=== PATIENT | female | born 1955 ===

== ENCOUNTER 2016-11-30 11:05 | Inpatient (IN) | payer SELFPAY ==
[2016-11-23 11:38] VITALS: BMI 30.5
[2016-11-30] MEDS ORDERED: Lactated Ringer's 1,000 ML IV ONE (12:12)
[2016-11-30] MEDS ORDERED: Succinylcholine 200 mg/10 ml Inj IV ONE (13:05)
[2016-11-30] MEDS ORDERED: ePHEDrine 50 mg/ml Inj ONE (13:05)
[2016-11-30] MEDS ORDERED: Rocuronium 10 mg/ml (5 ml) ONE (13:05)
[2016-11-30] MEDS ORDERED: Propofol 10 mg/ml Inj (20 ML) ONE (13:05)
[2016-11-30] MEDS ORDERED: Lidocaine 1% Inj (20ml) ONE (13:05)
[2016-11-30] MEDS ORDERED: Bupivacaine 0.5% Inj(30mL) ONE (13:06)
[2016-11-30] MEDS ORDERED: Phenylephrine 10 mg/ml Inj ONE (13:13)
[2016-11-30] MEDS ORDERED: Midazolam 2 MG/2 ML VIAL ONE (13:37)
[2016-11-30] MEDS ORDERED: Sodium Chloride 0.9% 1,000 ML IV ONE (14:20)
[2016-11-30] MEDS ORDERED: Desflurane Inhalation Anesthetic Liq (240 ml) ONE (14:43)
[2016-11-30] MEDS ORDERED: Neostigmine Methylsulfate 3mg/3ml Syringe IV ONE (14:49)
[2016-11-30] MEDS ORDERED: Lactated Ringer's 500 ML IV ONE (15:04)
[2016-11-30] MEDS ORDERED: HYDROmorphone 0.5 mg/0.5 ml ISec IVP PRN (15:05)
[2016-11-30] MEDS ORDERED: Oxycodone/Acetaminophen 5/325 mg Tab PO PRN (15:05)
[2016-11-30] MEDS ORDERED: Iohexol 240 (50 ml) PO ONE (15:10)
[2016-11-30] MEDS ORDERED: Barium Sulfate Susp 2.1% w/v, 2.0% w/w 450 mL Bottle PO ONE (15:12)
--- NOTE | 2016-11-30 15:19 | PCM.SURG1 ---
Surgeon's Initial Post Op Note - Surgeon's Notes Surgeon: Dr. Reaves Reconciliation Specialist: Tressa Valle, PGY2 Pre-Operative Diagnosis: Left Breast cancer Operative Findings: see full operative report Post-Operative Diagnosis: left breast cancer Operation Performed: left breast mastectomy with axillary lymph node dissection Specimen/Specimens Removed: left breast with long suture tag in the lateral portion and 2 short sutures in the inferior portion, left axillary soft tissue Estimated Blood Loss: EBL {In ML}: 20 Blood Products Given: N/A Drains Used: Sami Date of Surgery/Procedure: 11/30/16 Time of Surgery/Procedure: 14:00
[2016-11-30 23:05] VITALS: RESP 20
[2016-12-01] MEDS ORDERED: ceFAZolin 1 GM in Sodium Chloride 0.9% 100 ML IVPB SCH (01:00)
[2016-12-01 06:05] LABS: BASO # 0.1 K/uL (0.0-0.2); BASO % 0.8 % (0.0-2.0); EOS # 0.1 K/uL (0.0-0.7); EOS % 1.4 % (0.0-4.0); LYMPH # 2.4 K/uL (1.0-4.3); LYMPH % 24.2 % (20.0-40.0); MEAN CELL VOLUME 89.3 fl (81.0-99.0); MEAN CORPUSCULAR HEMOGLOBIN 29.1 pg (27.0-31.0); MEAN CORPUSCULAR HGB CONC 32.5 g/dL (33.0-37.0); MEAN PLATELET VOLUME 8.4 fl (7.2-11.7); MONO # 0.7 K/uL (0.0-0.8); MONO % 7.1 % (0.0-10.0); NEUT # 6.6 K/uL (1.8-7.0); NEUT % 66.5 % (50.0-75.0); WHITE BLOOD COUNT 9.9 K/uL (4.8-10.8)
[2016-12-01 06:23] LABS: ALB/GLOB RATIO 1.5 (1.0-2.1); ALKALINE PHOSPHATASE 99 U/L (38-126); ALT/SGPT 34 U/L (9-52); AST/SGOT 24 U/L (14-36); BILIRUBIN,TOTAL 0.5 mg/dl (0.2-1.3); BLOOD UREA NITROGEN 10 mg/dl (7-17); CALCIUM 9.2 mg/dL (8.4-10.2); CARBON DIOXIDE 27 mmol/L (22-30); GFR AFRICAN-AMERICAN > 60; GLUCOSE,RANDOM 128 mg/dL (65-105); POTASSIUM 4.7 MMOL/L (3.6-5.0); SODIUM 147 mmol/l (132-148); TOTAL PROTEIN 6.6 G/DL (6.3-8.2)
[2016-12-01 06:30] LABS: CHLORIDE 108 mmol/L (98-107)
[2016-12-01 06:31] LABS: PARTIAL THROMBOPLASTIN TIME 29.6 Seconds (25.6-37.1)
[2016-12-01] MEDS ORDERED: Iohexol 240 (50 ml) PO ONE (07:45)
[2016-12-01] MEDS ORDERED: Iohexol 300 100 ML IJ ONE (08:01)
[2016-12-01] MEDS ORDERED: Sodium Chloride 0.9% 50 ML IV ONE (08:01)
--- NOTE | 2016-12-01 11:24 | CT ---
PROCEDURE: CT Chest, Abdomen and Pelvis with intravenous contrast HISTORY: Breast cancer mets r/o COMPARISON: None. TECHNIQUE: IV dose administered: 95 cc Omnipaque 300 Radiation dose: Total exam DLP = 1273.17 mGy-cm. This CT exam was performed using one or more of the following dose reduction techniques: Automated exposure control, adjustment of the mA and/or kV according to patient size, and/or use of iterative reconstruction technique. FINDINGS: CT CHEST WITH CONTRAST: LUNGS: Clear. No nodule, mass or consolidation. MEDIASTINUM: Unremarkable. Normal caliber aorta and pulmonary arterial trunk. No aortic dissection. Normal size heart. LYMPH NODES: No enlarged mediastinal lymph nodes. There is a subcentimeter right peritracheal lymph node noted incidentally. PLEURA: Unremarkable. No pneumothorax. No pleural fluid. BONES: Unremarkable. OTHER FINDINGS: Status post left mastectomy. Subcutaneous emphysema over left anterior and lateral chest wall. Surgical drain in subcutaneous soft tissues. No significant axillary lymphadenopathy. CT ABDOMEN AND PELVIS: LIVER: Normal size and contour. Diminished attenuation diffusely may reflect diffuse fatty infiltration. Smooth contour. There is a 1.4 cm rounded low-attenuation mass at the periphery of the inferior right hepatic lobe, possibly a cyst but nonspecific. This measures 26 Hounsfield units in attenuation. No other hepatic mass is identified. There is no biliary ductal dilatation. GALLBLADDER AND BILE DUCTS: Unremarkable. PANCREAS: Unremarkable. No gross lesion or ductal dilatation. SPLEEN: Unremarkable. ADRENALS: Mild unilateral left adrenal hypertrophy. No discrete adrenal mass. KIDNEYS AND URETERS: Two punctate nonobstructing right upper pole renal calculi, approximately 2 mm each. No renal mass. No hydronephrosis. VASCULATURE: Unremarkable. No aortic aneurysm. BOWEL: Unremarkable. No obstruction. No gross mural thickening. APPENDIX: Appendix not visualized. Please correlate with any history of prior surgical appendectomy. PERITONEUM: Unremarkable. No free fluid. No free air. LYMPH NODES: Unremarkable. No enlarged lymph nodes. BLADDER: Unremarkable. REPRODUCTIVE: Normal uterus. Incidental 1.4 cm left ovarian cyst. Recommend correlation with transvaginal pelvic ultrasound examination. Unremarkable right ovary. BONES: No fracture. Incidentally noted partially lumbar iced S1 vertebra, normal developmental variant. OTHER FINDINGS: None. IMPRESSION: No evidence of metastasis. No thoracic or abdominal/pelvic lymphadenopathy. Incidental 1.4 cm rounded low-attenuation mass in the inferior right hepatic lobe. Please correlate with ultrasound. Incidental tiny nonobstructing right upper pole renal calculi. Additional minor findings as above. Status post left mastectomy. Postsurgical changes in left anterior chest wall. Subcutaneous emphysema noted. Surgical drain noted.
--- NOTE | 2016-12-01 11:42 | CP.PCM.PN ---
Subjective - Date & Time of Evaluation Date of Evaluation: 12/01/16 Time of Evaluation: 09:30 - Subjective Subjective: Patient seen and examined htis AM. TERELLEO. Patient states she has minimal pain, no fevers, chills, or SOB. Approximately 60cc's serosanguinous fluid output in Sami drain since surgery. Objective - Vital Signs/Intake and Output Vital Signs (last 24 hours): Temp Pulse Resp BP Pulse Ox 97.8 F 90 20 123/79 95 12/01/16 08:38 12/01/16 08:38 12/01/16 08:38 12/01/16 08:38 12/01/16 08:38 Intake and Output: 12/01/16 12/01/16 06:59 18:59 Intake Total 1100 Output Total 40 Balance 1060 - Medications Medications: Current Medications Famotidine (Pepcid) 20 mg PO BID [facility] Last Admin: 12/01/16 09:33 Dose: 20 mg Heparin Sodium (Porcine) (Heparin) 5,000 units SC Q12 GABI PRN Reason: Protocol Ondansetron HCl (Zofran Inj) 4 mg IVP Q6 PRN PRN Reason: Nausea/Vomiting Oxycodone/Acetaminophen (Percocet 5/325 Mg Tab) 1 tab PO Q4 PRN PRN Reason: Pain, moderate (4-7) Stop: 12/03/16 15:06 - Labs Labs: 12/01/16 05:55 12/01/16 05:55 PT 11.6 Seconds (9.8-13.1) 12/01/16 05:55 INR 1.1 (0.9-1.2) 12/01/16 05:55 APTT 29.6 Seconds (25.6-37.1) 12/01/16 05:55 - Constitutional Appears: Non-toxic, No Acute Distress - Head Exam Head Exam: ATRAUMATIC, NORMOCEPHALIC - Eye Exam Eye Exam: Normal appearance. absent: Conjunctival injection, Scleral icterus - ENT Exam ENT Exam: Mucous Membranes Moist, Normal Oropharynx - Respiratory Exam Respiratory Exam: NORMAL BREATHING PATTERN. absent: Accessory Muscle Use, Respiratory Distress - Cardiovascular Exam Cardiovascular Exam: RRR - GI/Abdominal Exam GI & Abdominal Exam: Soft. absent: Distended, Tenderness - Extremities Exam Extremities Exam: absent: Calf Tenderness, Pedal Edema, Tenderness - Neurological Exam Neurological Exam: Alert, Awake, Oriented x3 - Psychiatric Exam Psychiatric exam: Normal Affect, Normal Mood - Skin Skin Exam: Dry, Intact, Normal Color, Warm - Additional Findings Additional findings: Surgical dressing over left breast d/c/i. no surrounding swelling. No swelling or discoloration or weakness in the left arm Assessment and Plan - Assessment and Plan (Free Text) Assessment: 61F POD#1 s/p left breast mastectomy with axillary lymph node dissection for breast cancer Plan: - f/u CT chest, abdomen, and pelvis results - f/u bone scan results - resume HHD diet after scans - Continue PRN pain and nausea meds - Continue to monitor drain output - DVT ppx, GI ppx - Encourage ambulation and IS Further recs per Dr. Jean Paul Valle, PGY2
[2016-12-01 15:51] VITALS: BP 118/76; PULSE 88; TEMP 97.5
--- NOTE | 2016-12-01 17:08 | OP ---
PROCEDURE DATE: 11/30/2016 PREOPERATIVE DIAGNOSIS: Carcinoma of left breast. POSTOPERATIVE DIAGNOSIS: Carcinoma of left breast. PROCEDURE: Left modified radical mastectomy with axillary lymph node dissection. SURGEON: Kaylynn Reaves MD SENIOR SQL SERVER DBA: Dr. Valle. TYPE OF ANESTHESIA: General. ANESTHESIA ADMINISTERED BY: Dr. Gonzalez. DESCRIPTION OF PROCEDURE: With the patient in the supine position, the left chest, axilla, and upper arm were prepped and draped in the usual sterile manner. The patient had a palpable mass in the retro-areolar portion of the left breast and an elliptical incision was marked encompassing the nipple-areolar complex. The upper incision was made and a skin flap was raised primarily using cautery up to the upper edge of the pectoralis major. The lower incision was made and lower flap was raised down to the costal margin. The breast tissue was primarily fatty and the lower outer portion of breast tissue was dissected off the chest wall preserving the serratus musculature, and the dissection of the breast was continued dissecting the entire breast off the pectoral fascia using the cautery and to the area of the axilla. There was a narrow connection of the breast tissue to the axilla and this was divided to remove the breast. The lateral aspect of the overlying skin was marked with a long Vicryl suture and the inferior aspect was marked with two short sutures for pathologic reference. There did not appear to be any gross adherence of the tumor to either the chest wall or the overlying skin. The axilla was then identified and after visualizing the axillary vein, the fatty axillary contents were dissected downward from the pectoralis to the latissimus dorsi. There were no significantly enlarged lymph nodes identified and the axillary contents were primarily fatty. Clips were placed surrounding the axilla as the smaller lymphatic vessels were divided and the axillary contents were sent separately to pathology. The operative site was examined for hemostasis. The wound was irrigated with sterile water. A #19 Sami drain was placed via a stab incision in the lower lateral portion of the flap and positioned beneath both the chest wall and the axilla, and closure was performed with kaylah. A dry sterile dressing was applied. The patient tolerated the procedure well and transferred to recovery room in stable condition. Estimated blood loss for the procedure was 50 mL. Kaylynn Reaves MD [facility] # [id number]
[2016-12-01 17:09] VITALS: O2SAT 100
--- NOTE | 2016-12-01 17:12 | NM ---
PROCEDURE: Whole Body Bone Scan HISTORY: breast cancer r/o mets COMPARISON: December 01, 2016. CT thorax abdomen and pelvis. TECHNIQUE: Following administration of 25.7 miCu of Tc MDP multiplanar whole body images were obtained. FINDINGS: Evidence for bony metastatic disease: None. Degenerative uptake: Primarily affecting knees and ankles. Physiologic uptake: Normal physiologic activity in the kidneys. Other findings: None. IMPRESSION: No evidence of bony metastatic disease.
== END 2016-12-01 18:00 | disposition home or self-care (01) | DRG 258 ==
LOC: H.OPSURG 11:05 → H.PEDS 17:14
PROVIDERS: ADMIT Specialist; ATTEND Specialist
PROC: 07B60ZZ Excision of Left Axillary Lymphatic, Open Approach (ICD-10-PCS; 2016-11-30)
PROC: 0HTU0ZZ Resection of Left Breast, Open Approach (ICD-10-PCS; principal; 2016-11-30 13:30)
DX: C50.012 Malignant neoplasm of nipple and areola, left female breast (principal); I10 Essential (primary) hypertension; I25.2 Old myocardial infarction

== ENCOUNTER 2016-12-03 18:05 | Emergency (ER) | payer SELFPAY ==
[2016-12-03 18:06] VITALS: BMI 30.5
--- NOTE | 2016-12-03 19:21 | ED PDOC ---
HPI: Wound Care - HPI Time Seen by Provider: 12/03/16 18:43 Chief Complaint (Nursing): Breast Problem Chief Complaint (Provider): Drainage from wound of left breast History Per: Patient Exam Limitations: no limitations Onset/Duration Of Symptoms: Days (earlier today) Current Symptoms Are (Timing): Still Present Quality Of Symptoms: Draining Additional Complaint(s): Patient is a 61 year old female with a past medical history of breast cancer and an appendectomy, presenting to the ED complaining of drainage from the left breast that began earlier today, post left breast mastectomy day 3. The operation was performed in this facility, by Dr. Reaves. Patient received a ARACELI drainage tube surgically placed and was discharged home. She has not undergone any chemotherapy or radiation therapy, and denies any pain, bleeding, fever, or any other complaints. Her primary care physician is located in [place], [place]. PMD: Jean Paul CRUZ Benetta L Past Medical History Reviewed: Historical Data, Nursing Documentation, Vital Signs Vital Signs: Last Vital Signs Temp 97.9 F 12/03/16 18:30 Pulse 90 12/03/16 18:30 Resp 18 12/03/16 18:30 BP 154/87 H 12/03/16 18:30 Pulse Ox 97 12/03/16 18:30 - Medical History PMH: HTN (NO MEDICATION STOP SELF) Denies: Chronic Kidney Disease - Surgical History Surgical History: Appendectomy (15 YRS AGO) - Family History Family History: States: No Known Family Hx - Social History Current smoker - smoking cessation education provided: Yes (Heavy smoker, > 10 cigarettes daily) Alcohol: None Drugs: Denies - Home Medications Home Medications: Ambulatory Orders Medication Instructions Recorded No Known Home Med 12/01/16 - Allergies Allergies/Adverse Reactions: Allergies Allergy/AdvReac Type Severity Reaction Status Date / Time No Known Allergies Allergy Verified 12/01/16 08:14 Review of Systems ROS Statement: Except As Marked, All Systems Reviewed And Found Negative Skin: Positive for: Other (Left breast wound drainage) Physical Exam - Reviewed Nursing Documentation Reviewed: Yes Vital Signs Reviewed: Yes - Physical Exam Appears: Positive for: No Acute Distress Head Exam: Positive for: ATRAUMATIC, NORMOCEPHALIC Skin: Positive for: Normal Color, Warm, Dry Eye Exam: Positive for: Normal appearance, EOMI Neck: Positive for: Normal, Painless ROM, Supple Cardiovascular/Chest: Positive for: Regular Rate, Rhythm. Negative for: Murmur Respiratory: Positive for: Normal Breath Sounds. Negative for: Respiratory Distress Gastrointestinal/Abdominal: Positive for: Normal Exam, Soft. Negative for: Tenderness Back: Positive for: Normal Inspection. Negative for: L CVA Tenderness, R CVA Tenderness Extremity: Positive for: Normal ROM. Negative for: Pedal Edema Neurologic/Psych: Positive for: Alert, Oriented (x3) Comments: Left Breast Exam: -Performed in presence of nurse Sita. -Status-post mastectomy. Surgical wound with sutures in place show no bleeding or redness. ARACELI drain present in wound, serosanguineous fluid draining into ANDRAE tube container. - ECG O2 Sat by Pulse Oximetry: 97 (RA) Pulse Ox Interpretation: Normal Medical Decision Making Medical Decision Making: Time: 19:04 Initial Impression: Dislodged ARACELI drainage tube Initial Plan: -Will consult with Dr. Reaves [address] Reaves who recommends to leave ARACELI tube out and follow up with her on Monday. Disposition - Clinical Impression Clinical Impression: Incisional breast wound, Encounter for surgical wound dressing change - Patient ED Disposition Is Patient to be Admitted: No Doctor Will See Patient In The: Office Counseled Patient/Family Regarding: Studies Performed, Diagnosis, Need For Followup - Disposition Referrals: Kaylynn Reaves MD [Staff Provider] - Disposition: Routine/Home Disposition Time: 20:37 Condition: GOOD Additional Instructions: Follow up with Dr Reaves on Monday. Instructions: Acute Wound Care (ED) Print Language: CITIZEN OF [place]
[2016-12-03 20:46] VITALS: BP 144/79; PULSE 79; RESP 16; TEMP 98; O2SAT 99
== END 2016-12-03 20:46 | disposition home or self-care (01) ==
LOC: H.ER 18:05
DX: Z48.01 Encounter for change or removal of surgical wound dressing (principal)

== ENCOUNTER 2017-03-23 10:19 | Day surgery (SDC) | payer SELFPAY ==
[2017-03-21 08:43] VITALS: BMI 33.6
[2017-03-23] MEDS ORDERED: Iohexol 300 100 ML IJ ONE (14:58)
[2017-03-23] MEDS ORDERED: Lidocaine 1% Inj (20ml) ONE (14:58)
[2017-03-23] MEDS ORDERED: Propofol 10 mg/ml Inj (20 ML) ONE (15:37)
[2017-03-23] MEDS ORDERED: Midazolam 2 MG/2 ML VIAL ONE (15:38)
--- NOTE | 2017-03-23 16:56 | PCM.SURG1 ---
Surgeon's Initial Post Op Note - Surgeon's Notes Surgeon: Dr Reaves Border Guard: Dr Lam PGY3 Type of Anesthesia: General Endo Pre-Operative Diagnosis: breast ca Operative Findings: see report Post-Operative Diagnosis: as above Operation Performed: attempted right subclavian insertion. right IJ insertion. flouroscopic confirmation Specimen/Specimens Removed: none Estimated Blood Loss: EBL {In ML}: 5 Blood Products Given: N/A Drains Used: No Drains Post-Op Condition: Good Date of Surgery/Procedure: 03/23/17 Time of Surgery/Procedure: 16:56
--- NOTE | 2017-03-23 16:58 | CP.SDSHP ---
Same Day Surgery H & P - History Proposed Procedure: chemo-port insertion Pre-Op Diagnosis: breast ca - Previous Medical/Surgical History Pain: 0. No Pain - Allergies Allergies: Allergies No Known Allergies Allergy (Verified 03/21/17 08:43) as per pt - Physical Exam Vital Signs: Vital Signs 03/23/17 03/23/17 10:55 10:58 Temperature 98.4 F Pulse Rate 105 H 105 H Respiratory 20 Rate Blood Pressure 132/89 O2 Sat by Pulse 96 Oximetry Mental Status: Alert & Oriented x3 Neuro: WNL Heart: WNL Lungs: WNL GI: WNL - {Optional Preform as Required} Abdomen: WNL - Impression Impression: prepped for chemoport insertion Pt. Evaluated Today:Candidate for Anesthesia & Procedure: Yes - Date & Time Date: 03/23/17 Time: 16:58 Short Stay Discharge - Short Stay Discharge Admitting Diagnosis/Reason for Visit: C50.90 Disposition: HOME/ ROUTINE Referrals: Urszula Lamas APN [Primary Care Provider] -
[2017-03-23] MEDS ORDERED: HYDROmorphone 0.5 mg/0.5 ml ISec IVP PRN (17:06)
[2017-03-23] MEDS ORDERED: Lactated Ringer's 1,000 ML IV SCH (17:15)
[2017-03-23 17:17] VITALS: RESP 18
--- NOTE | 2017-03-23 17:41 | RAD ---
PROCEDURE: CHEST RADIOGRAPH, 1 VIEW HISTORY: s/p chemo-port insertion COMPARISON: 03/21/2017 FINDINGS: LUNGS: Clear. PLEURA: No pneumothorax or pleural fluid seen. CARDIOVASCULAR: No radiographic findings to suggest acute or significant cardiovascular disease. Right IJ catheter tip above the confluence of the right subclavian and right internal jugular vein. The finding is marked on the study for review. The tip overlies the clavicle. OSSEOUS STRUCTURES: No significant abnormalities. VISUALIZED UPPER ABDOMEN: Normal. OTHER FINDINGS: None. IMPRESSION: IJ catheter tip proximal to the confluence of right internal jugular and subclavian veins overlying the clavicle, marked on the study for review. No pneumothorax identified.
[2017-03-23 19:04] VITALS: TEMP 97.4
[2017-03-23 19:07] VITALS: BP 140/80; PULSE 76; O2SAT 96
--- NOTE | 2017-03-24 02:57 | OP ---
PROCEDURE DATE: 03/23/2017 SURGEON: Kaylynn Reaves MD STOCK CHASER: Dr. Lam. ANESTHESIA: General. ANESTHESIA ADMINISTERED BY: Dr. Calderon. PREOPERATIVE DIAGNOSIS: Carcinoma of breast. POSTOPERATIVE DIAGNOSIS: Carcinoma of breast. PROCEDURE: Right jugular Port-A-Cath insertion. DESCRIPTION OF OPERATION: With the patient in the supine position under adequate general anesthesia, the right upper chest and lower neck were prepped and draped in the usual sterile manner. 1% lidocaine was infiltrated and attempt was made at the right subclavian vein puncture. This was unsuccessful and after additional 1% lidocaine injection, a right internal jugular vein puncture was performed and a guidewire was passed. The position was checked with C-arm. The subcutaneous pocket was created over the right pectoral region and the 6-Somali catheter of a titanium power port was tunneled from the pocket site to the insertion site. The vein dilator and introducer were passed over the guidewire. The dilator and guidewire were removed and again with C-arm guidance, the catheter was positioned in the lower portion of the superior vena cava. The catheter was trimmed at 20 cm at the skin and fixed to the port, which had been filled with heparinized saline and fixed with the attachment device. The port was positioned in the previously created pocket and the port was aspirated for blood return and then again flushed with heparinized saline. The pocket was then closed with a running subcuticular suture of 4-0 Monocryl. Dry sterile dressings were applied. The patient tolerated the procedure well and transferred to the recovery room in stable condition. Estimated blood loss for the procedure was 5 mL. Kaylynn Reaves MD
--- NOTE | 2017-03-24 11:31 | RAD ---
PROCEDURE: Intraoperative Fluoroscopy. HISTORY: INSERTION OF RAMANA-CATH FINDINGS: Fluoroscopic assistance was provided. 20.7 seconds fluoroscopy time utilized during this procedure. Radiation dose = 3.27 mGy.
== END 2017-03-23 19:15 | disposition home or self-care (01) ==
LOC: H.OPSURG 10:19
PROVIDERS: ATTEND Specialist
DX: C50.912 Malignant neoplasm of unspecified site of left female breast (principal)
CPT/HCPCS: 36561; 71045; C1751; J0690; J1644; J2250; J2704; J3010; J7030; J7040; J7120; Q9967